=== PATIENT | female | born 1970 | race Caucasian/White ===

== ENCOUNTER 2017-07-31 08:08 | Inpatient (IN) | payer OTHER ==
[~2017-07-31] VITALS: Ht 162.6 cm; Wt 62.6 kg
--- NOTE | 2017-07-31 23:10 | NUR ---
Pre-Admission Note Pt is a 46 year old female, seen at intake, AAOx4, no SOB with slight anxiety noted at this time. Discussed with patients admission policies of the unit. Patient is coherent and able to respond to questions appropriately. Pt is ambulatory with steady gait. Vital Signs taken and as follows: . BP= 130/86, MT= 69, RR= 14, T= 97.6, O2sat= 99% RA. Pt verbalized understanding of instructions and teaching regarding disposal of narcotic and other controlled home medications, unit protocols such as taking of vital signs Q4H and handling and disposal of contraband. Will continue with admission upon patients arrival on the unit.
--- NOTE | 2017-07-31 23:20 | NUR ---
Admission Note Pt is a 46 year old female admitted to [facility] 07/31/2017 for methamphetamines dependence, arrived on the unit at 2320. NKA, denies history of seizures. Pt was able to provide urine drug screen. Upon admission, CIWA 3. BP= 130/86, AK= 69, RR= 14, T= 97.6, O2sat= 99% RA. No reports of pain , weight 138lbs and height 54. Pt denies being hospitalized within the past 30 days. Pt reports she smokes 15 sticks of cigarettes per day. Px reports she doesnt have primary care provider. Pt is able to understand and respond to all questions pertaining to his hospitalization. Substance Abuse History is as follows: 1. Methamphetamine- 0.2 G daily, last intake of 0.2 G on 07/31/2017 at this rate for 20 years. Px states that she smokes about $200 worth of meth every mo. Pt reports the trigger to use is due to feeling stressed. Px states that her left her 2 weeks ago. 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 Pts longest sober period was for 1 year in 2008. This is her 1st time in tx. When pt does not use, she reports symptoms of "I get anxious, desperate and emotional". PT has family history of substance abuse: "My eldest son is using weed and meth, and my 2nd son is using weed as well". PMHx: Anxiety, Hysterectomy 4-5 years ago, chronic back pain. At time of assessment, pt is AAOx4, is anxious, in emotional distress, reports feeling frustrated, respirations even/unlabored, denies SOB/chest pain, PERRLA. Skin is intact and noted with mild sweat, bowel sounds active x4, abdomen soft. Pt denies suicidal ideations. Educational information provided and left at bedside, pt oriented to room and encouraged to notify staff with any concerns. Safety measures in place, call light within reach, side rails up x2, bed locked and in low position. Will continue to monitor.
[2017-08-01] VITALS: BP 130/86
[2017-08-01] MEDS ORDERED: IBUPROFEN 400 MG TABLET PO PRN
[2017-08-01] MEDS ORDERED: DICYCLOMINE HCL 20 MG TABLET PO PRN
[2017-08-01] MEDS ORDERED: MAG HYDROX/AL HYDROX/SIMETH 30 ML LIQUID UDC PO PRN
[2017-08-01] MEDS ORDERED: CLONIDINE HCL 0.1 MG TABLET PO PRN
[2017-08-01] MEDS ORDERED: LOPERAMIDE HCL 2 MG CAPSULE PO PRN ×2
[2017-08-01] MEDS ORDERED: MIRALAX 17 GM POWD.PACK PO PRN
[2017-08-01] MEDS ORDERED: MAGNESIUM HYDROXIDE 30 ML LIQUID UDC PO PRN
[2017-08-01] MEDS ORDERED: diphenhydrAMINE 50 MG CAPSULE PO PRN
[2017-08-01] MEDS ORDERED: ACETAMINOPHEN 325 MG TABLET PO PRN
[2017-08-01 00:04] LABS: *URINE HCG, QUAL NEGATIVE (NEGATIVE)
[2017-08-01 00:12] LABS: *AMPHETAMINE, URINE POSITIVE (NEGATIVE); *BARBITURATE, URINE NEGATIVE (NEGATIVE); *CANNABINOID, URINE NEGATIVE (NEGATIVE); *COCCAINE, URINE NEGATIVE (NEGATIVE); *OPIATE, URINE NEGATIVE (NEGATIVE); *PHENCYCLIDINE SCREEN,URINE NEGATIVE (NEGATIVE)
[2017-08-01 01:02] LABS: BASOPHILS % (AUTO) 0.6 % (0.0-2.0); EOSINOPHILS # (AUTO) 0.2 K/uL (0.0-0.7); EOSINOPHILS % (AUTO) 2.3 % (0.0-7.0); HEMATOCRIT 44.2 % (37-47); HEMOGLOBIN 14.8 G/DL (12.0-16.0); LYMPHOCYTES % (AUTO) 40.2 % (20.5-51.5); MEAN CORPUSCULAR HEMOGLOBIN 31.2 UUG (27.0-31.0); MEAN CORPUSCULAR HGB CONC 34 g/dL (32.0-37.0); MEAN CORPUSCULAR VOLUME 92.9 FL (81.0-99.0); MONOCYTES # (AUTO) 0.6 K/UL (0.1-1.30); MONOCYTES % (AUTO) 7.4 % (0.0-11.0); NEUTROPHILS # (AUTO) 3.7 K/UL (1.8-8.9); NEUTROPHILS % (AUTO) 49.5 % (38.5-71.5); PLATELET COUNT (AUTO) 205 K/UL (150-450); RED BLOOD CELL COUNT(AUTO) 4.76 MIL/UL (4.2-5.4); WHITE BLOOD COUNT (AUTO) 7.5 K/UL (4.0-11.2)
[2017-08-01 01:17] LABS: ALANINE AMINOTRANSFERASE 30 U/L (14-59); ALKALINE PHOSPHATASE 75 U/L (50-136); AMYLASE 38 U/L (25-115); ASPARTATE AMINOTRANSFERASE 21 U/L (15-37); BILIRUBIN,TOTAL 0.4 mg/dL (0.2-1.0); CARBON DIOXIDE 33 mmol/L (21-32); CHLORIDE 104 mmol/L (98-107); CREATININE 0.9 mg/dL (0.6-1.3); ETHANOL < 3 MG/DL (0-0); GLUCOSE 99 mg/dL (74-106); LIPASE 111 U/L (73-393); MAGNESIUM 2.1 mg/dL (1.8-2.4); POTASSIUM 3.6 mmol/L (3.5-5.1); UREA NITROGEN, BLOOD 16 mg/dL (7-18)
[2017-08-01 01:28] LABS: THYROID STIMULATING HORMONE 2.373 mIU/mL (0.358-3.740)
[2017-08-01 04:00] VITALS: BP 135/93
--- NOTE | 2017-08-01 04:00 | NUR ---
VS RP=004/93, CT=77, RR= 18, O2sat= 98%, T= 98.3 CIWA deferred due to px sleeping, to assess when px awake per order Safety measures in placed , will continue to monitor.
--- NOTE | 2017-08-01 07:00 | NUR ---
End of Shift Pt is a 46 year old female admitted for methamphetamines dependence. NKA, denies history of seizures. Px reported using Methamphetamine- 0.2 G daily, last intake of 0.2 G on 07/31/2017 at this rate for 20 years. Px states that she smokes about $200 worth of meth every mo. This is pxs 1st time in tx.PMHx: Anxiety, Hysterectomy 4-5 years ago, chronic back pain. CIWA 3. No PRN meds given during shift. Px slept for 5 hrs, Intake of 350 ml, voided 1 x, BM 0x . Safety measures placed, call light within reach, side rails up x2. Bed locked and in low position. Endorsed to day shift nurse.
--- NOTE | 2017-08-01 07:20 | NUR ---
Start of Shift Report from the night nurse: pt is a 46 y/o female here for Methamphetamine dependence r/t 0.2 g smoked daily for 20 years; no tapers ordered since observation ordered only. Pt is a full code, regular diet, NKA, fall precautions ordered. Hhx: Hysterectomy , anxiety, chronic back pain. No PRN medications given. Pt is asleep in room. Will cont. to monitor the pt. Last CIWA 3
[2017-08-01 08:00] VITALS: BP 106/64
[2017-08-01] MEDS ORDERED: TUBERCULIN,PURIF.PROT.DERIV. 5 TU/0.1 ML TEST ID ONE (09:00)
[2017-08-01] MEDS: MULTIVITAMINS,THERAPEUTIC TABLET PO SCH (10:04)
[2017-08-01] MEDS ORDERED: HYDROXYZINE PAMOATE 25 MG CAPSULE PO PRN (11:30)
[2017-08-01 12:00] VITALS: BP 92/50
[2017-08-01] MEDS ORDERED: GABAPENTIN 300 MG CAPSULE PO ONE (13:00)
[2017-08-01 16:00] VITALS: BP 114/78
--- NOTE | 2017-08-01 18:50 | NUR ---
End of Shift Report to the night nurse: pt is a 46 y/o female here for Methamphetamine dependence r/t 0.2 g smoked daily for 20 years; no tapers ordered since observation ordered only. Pt is a full code, regular diet, NKA, fall precautions ordered. Hhx: Hysterectomy, anxiety, chronic back pain. V/S stable. Skin is intact and PPD test done on LFA during my shift. No PRN medications given during my shift. No new orders or no abnormal labs during my shift. Last CIWA 1
[2017-08-01 20:00] VITALS: BP 121/94
--- NOTE | 2017-08-01 20:00 | NUR ---
Start of Shift Pt is a 46 year old female admitted for Methamphetamine dependence, is on observation. Pt reported using Meth via smoke $200 worth/monthly. PMH: hysterectomy, , breast augmentation, anxiety and back pain. NKA, regular diet, fall precautions and full code. Upon assessment, pt reports feeling anxious and overwhelmed, reports back aches, respirations even/unlabored, denies SOB/chest pain, denies n/v/d, bowel sounds active x4, abdomen soft. Safety measures in place, call light within reach, side rails up x2, bed locked and in low position. Will continue to monitor.
[2017-08-01] MEDS: GABAPENTIN 300 MG CAPSULE PO SCH (20:27)
[2017-08-02] VITALS: BP 121/63
--- NOTE | 2017-08-02 | NUR ---
VS BP 121/63, pulse 84, resp 17, Spo2 100%, Temp 98 CIWA deferred d/t pt sleeping, to assess while pt is awake as ordered Safety measures in placed , will continue to monitor.
[2017-08-02 04:00] VITALS: BP 110/78
--- NOTE | 2017-08-02 04:00 | NUR ---
Vital Signs BP 110/78, pulse 82, resp 16, Spo2 99%, Temp 98 CIWA deferred d/t pt sleeping, to assess while pt is awake as ordered Safety measures in placed , will continue to monitor.
--- NOTE | 2017-08-02 07:00 | NUR ---
End of Shift Pt is a 46 year old female admitted for Methamphetamine dependence, is on observation. Pt reported using Meth via smoke $200 worth/monthly. PMH: hysterectomy, , breast augmentation, anxiety and back pain. NKA, regular diet, fall precuations and full code. During shift, pt reported feeling anxious and overwhelmed, reported back aches - scheduled Gabapentin 300mg administered, CIWA 1. No PRN medications administered. Pt slept for 8hours, intake of 710 ml PO, voids x1 and stool x0. Safety measures in place, call light within reach, side rails up x2, bed locked and in low position. Endorsed to days shift nurse.
--- NOTE | 2017-08-02 07:05 | NUR ---
Start of Shift Notes: Received patient in her room. Alert and oriented x 4. Verbally responsive. Able to make needs known. Respirations even and unlabored. No SOB noted. Skin warm and dry to touch. Abdomen soft and non-distended. with (+) BS in all 4 quadrants. No complains of N/V/D or constipation noted. Voids independently. Ambulatory ad tor with steady gait. Patient is a 46 year old female admitted for mehamphetamine dependence. Prior to admission, patient was using 0.2 grams of methamhetamine depenence who was placed on PRNs to manage her withdrawal symptoms. NKA. FULL CODE. Regular diet. On fall and seizure precautions. Has past medical hx of hysterectomy, anxiety, and back pain. Educated patient on her current plan of care for the day and her medication regimen. Encouraged oral fluid intake and encouraged group participation to learn new skills to prevent relapse.
[2017-08-02 08:00] VITALS: BP 123/85
[2017-08-02] MEDS: MULTIVITAMINS,THERAPEUTIC TABLET PO SCH (08:56)
[2017-08-02] MEDS: GABAPENTIN 300 MG CAPSULE PO SCH ×2 (08:56→21:40)
[2017-08-02 12:00] VITALS: BP 115/82
[2017-08-02 12:10] LABS: HEPATITIS B SURFACE AG Negative (Negative)
[2017-08-02 16:00] VITALS: BP 134/90
[2017-08-02] MEDS ORDERED: GABA-534 PO (16:09)
[2017-08-02] MEDS ORDERED: DIPH50CA37 PO (16:09)
[2017-08-02] MEDS ORDERED: HYDR-3895 PO (16:09)
[2017-08-02] MEDS ORDERED: IBUP-1953 PO (16:09)
--- NOTE | 2017-08-02 17:00 | NUR ---
Miralax 17 gm PO given: Patient noted with complain of constipation. Medicated patient with Miralax 17 gm PO as ordered. Encouraged oral fluid intake and encourage exercise and activity.
--- NOTE | 2017-08-02 18:00 | NUR ---
Re-assessment: No relief noted from Miralax at this time. Will continue to encourage patient to increase her oral fluid intake and to increase exercise and activity.
--- NOTE | 2017-08-02 18:52 | NUR ---
End of Shift Notes: Patient continues to be on PRNs to manage her s/s of withdrawal. Will be discharging tomorrow to [facility]. Patient states that she is ready to be discharged. VS monitored closely q 4 hours. No significant abnormalities noted. Withdrawal symptoms were closely monitored. Patient presented with anxiety throughout the day. Noted patient with episodes of severe anxiety, appearing like a panic attack. However patient refused to take any medications to keep her comfortable and was able to be redirected by staff and MD Kaur. Last CIWA 1 due to mild anxiety. Miralax 17 gm PO given at 1700 for constipation. Results pending. Patient will be discharging today. Patient participated in group and activities. Compliant with care and treatment. All needs met and attended. Call light in reach. Will continue to monitor.
[2017-08-02 20:00] VITALS: BP 118/84
--- NOTE | 2017-08-02 20:00 | NUR ---
Start of Shift Pt is a 46 year old female admitted for Methamphetamine dependence, on observation. Pt reported using Meth via smoke $200 worth/monthly. PMH: hysterectomy, , breast augmentation, anxiety and back pain. NKA, regular diet, fall precautions and full code. Upon assessment, pt reports feeling anxious due to scheduled discharge tomorrow, respirations even/unlabored, denies SOB/chest pain, denies n/v/d, bowel sounds active x4, abdomen soft. Pt presented with no s/s of acute withdrawal. Safety measures in place, call light within reach, side rails up x2, bed locked and in low position. Will continue to monitor.
--- NOTE | 2017-08-03 | NUR ---
Pt refused to be woken up for 0000 Vital Signs CIWA deferred due to pt sleeping - to assess while pt is awake as ordered. Safety measures in place. will continue to monitor.
--- NOTE | 2017-08-03 04:00 | NUR ---
Pt refused to be woken up for 0400 Vital Signs CIWA deferred due to pt sleeping - to assess while pt is awake as ordered. Safety measures in place. will continue to monitor.
--- NOTE | 2017-08-03 07:00 | NUR ---
START OF SHIFT NOTE: RECEIVED PT FROM [facility] TECHNICIAN NURSE, PT IS IN STABLE CONDITION NO S/S OF PAIN OR DISCOMFORT. PT IS ADMITTED TO [facility] FOR METH OBSERVATION WITHDRAWAL/DEPENDENCE. WILL ASSIST PT IN DISCHARGING AND WILL CONTINUE TO MONITOR PT FOR ANY CHANGES
--- NOTE | 2017-08-03 07:00 | NUR ---
End of Shift Pt is a 46 year old female admitted for Methamphetamine dependence, on observation. Pt reported using Meth via smoke $200 worth/monthly. PMH: hysterectomy, , breast augmentation, anxiety and back pain. NKA, regular diet, fall precautions and full code. During shift, pt reported feeling anxious due to scheduled discharge today. Scheduled Gabapentin 300mg administered. No PRN medications given during shift. Pt presented with no s/s of acute withdrawal. Pt slept for 9 hours, intake of 1516 ml PO, voids x1 and stool x1. Safety measures in place, call light within reach, side rails up x2, bed locked and in low position. Endorsed to day shift nurse.
[2017-08-03] MEDS: GABAPENTIN 300 MG CAPSULE PO SCH (09:18)
[2017-08-03] MEDS: MULTIVITAMINS,THERAPEUTIC TABLET PO SCH (09:18)
--- NOTE | 2017-08-03 10:13 | NUR ---
DISCHARGE NOTE: PT LEFT THE UNIT IN STABLE CONDITION NO S/S OF PAIN OR DISCOMFORT, PT TEACHING WAS ADMINISTERED AND PT VERBALIZED UNDERSTANDING. ALL PERSONAL BELONGINGS WERE RETURNED. PT WILL BE TRANSFERRED TO [facility] [place] [facility]
== END 2017-08-03 10:13 | disposition other institution (70) | DRG 895 ==
LOC: SRC 21:49
PROVIDERS: ADMIT Internal Medicine; ATTEND Internal Medicine
PROC: HZ2ZZZZ Detoxification Services for Substance Abuse Treatment (ICD-10-PCS; principal; 2017-07-31)
PROC: HZ41ZZZ Group Counseling for Substance Abuse Treatment, Behavioral (ICD-10-PCS; 2017-08-02)
DX: F15.23 Other stimulant dependence with withdrawal (principal); E87.3 Alkalosis; E86.0 Dehydration; F41.9 Anxiety disorder, unspecified; F14.21 Cocaine dependence, in remission; F17.210 Nicotine dependence, cigarettes, uncomplicated; Z80.1 Family history of malignant neoplasm of trachea, bronchus and lung; Z81.8 Family history of other mental and behavioral disorders
CPT/HCPCS: 36415; 70030-TC; 80307; 80324; 83690; 83735; 84443; 84703; 85025; 86580; 86592; 86705; 86803; 87340; 87806; A4663; G0480